=== PATIENT | female | born 1955 | race African-American/Black ===

== ENCOUNTER 2019-09-18 18:58 | Emergency (ER) | payer MEDICAID ==
[~2019-09-18] VITALS: Ht 170.2 cm; Wt 85.0 kg
[~2019-09-18 18:58] MED LIST: ALBU6.7H11 INH; AMLO10TA80 PO; ATROV INH; BUDE6HFA IH; HERBAL LAXATIVE; HYDR25TA PO; LORA1TAB PO; MOME13HF2 INH; OLAN15TA17 MT
[2019-09-18] MEDS ORDERED: ALBUTEROL (0.083%) 2.5MG/3ML NEB HHN STA (19:36)
[2019-09-18] MEDS ORDERED: METHYLPREDNISOLONE SOD SUCC 125 MG/2 ML VIAL IV STA (19:36)
[2019-09-18] MEDS ORDERED: ALBUTEROL (0.5%) 2.5MG/0.5ML NEB HHN ONE (19:45)
[2019-09-18] MEDS ORDERED: PREDNISONE 20MG TABLET PO ONE (19:45)
[2019-09-18 19:57] VITALS: BP 145/87
[2019-09-18 20:29] LABS: BASOPHILS % 0.8 % (0.0-2.0); EOSINOPHILS % 1.5 % (0.0-5.0); HEMATOCRIT. 45.9 % (36.0-48.0); HEMOGLOBIN. 15.3 g/dL (12.0-16.0); LYMPHOCYTES % 29.6 % (20.0-50.0); MEAN CORPUSCULAR HEMOGLOBIN 29.1 pg (28.0-32.0); MEAN PLATELET VOLUME 7.8 fl (7.4-10.4); MONOCYTES % 8.3 % (2.0-8.0); NEUTROPHILS % 59.8 % (40.0-76.0); PLATELET 249 x1000/uL (130-400); RED BLOOD CELL COUNT 5.27 mill/uL (4.2-5.4); RED CELL DISTRIBUTION WIDTH 14.9 % (11.6-14.6)
[2019-09-18 20:31] LABS: CHLORIDE 109 mEq/L (98-107)
== END 2019-09-18 22:17 | disposition home or self-care (01) ==
LOC: ER 18:58
DX: J44.1 Chronic obstructive pulmonary disease with (acute) exacerbation (principal); J45.901 Unspecified asthma with (acute) exacerbation; I10 Essential (primary) hypertension; Z88.2 Allergy status to sulfonamides; Z79.899 Other long term (current) drug therapy
CPT/HCPCS: 36415; 71045; 80053; 83880; 84484; 85025; 93005; 94640; 99284; J7512; J7611; Z7610

== ENCOUNTER 2019-10-28 10:20 | Inpatient (IN) | payer MEDICAID ==
[~2019-10-28] VITALS: Ht 177.8 cm; Wt 108.4 kg
[2019-10-28] MEDS ORDERED: IPRATROPIUM BROMIDE (0.02%) 0.5MG/2.5ML NEB HHN STA (11:42)
[2019-10-28] MEDS ORDERED: MORPHINE SULFATE 4 MG/ML CPJ (NOT FOR IM USE) IV STA (11:42)
[2019-10-28] MEDS ORDERED: ONDANSETRON HCL 4MG/2ML INJ IV STA (11:42)
[2019-10-28] MEDS ORDERED: METHYLPREDNISOLONE SOD SUCC 125 MG/2 ML VIAL IV STA (11:42)
[2019-10-28] MEDS ORDERED: ALBUTEROL (0.083%) 2.5MG/3ML NEB HHN STA (11:42)
[2019-10-28 11:43] LABS: BASOPHILS % 0.6 % (0.0-2.0); EOSINOPHILS % 0.1 % (0.0-5.0); HEMATOCRIT. 43.3 % (36.0-48.0); HEMOGLOBIN. 14.5 g/dL (12.0-16.0); LYMPHOCYTES % 27.3 % (20.0-50.0); MEAN CORPUSCULAR HEMOGLOBIN 29.4 pg (28.0-32.0); MEAN CORPUSCULAR VOLUME 87.7 fL (81.0-99.0); MEAN PLATELET VOLUME 8.1 fl (7.4-10.4); PLATELET 220 x1000/uL (130-400); RED BLOOD CELL COUNT 4.95 mill/uL (4.2-5.4); RED CELL DISTRIBUTION WIDTH 15.3 % (11.6-14.6)
[2019-10-28] MEDS ORDERED: MAGNESIUM 2 G PREMIX 50 ML IV ONE (11:45)
[2019-10-28] MEDS ORDERED: ASPIRIN 81MG TABLET PO ONE (11:45)
[2019-10-28] MEDS ORDERED: NITROGLYCERIN OINT 1GM/INCH UDPKT TD ONE (11:45)
[2019-10-28 11:48] LABS: CHLORIDE 109 mEq/L (98-107)
[2019-10-28] MEDS ORDERED: KCL 10MEQ/50ML PREMIX 50 ML IV ONE (12:30)
[2019-10-28] MEDS ORDERED: ENALAPRIL 1.25MG/ML VIAL 1ML IV NR (12:30)
[2019-10-28] MEDS ORDERED: ENALAPRIL 2.5MG/2ML VIAL 2ML IV ONE (12:30)
[2019-10-28] MEDS ORDERED: POTASSIUM CHLORIDE 20MEQ TABLET SR PO ONE (12:30)
[2019-10-28] MEDS ORDERED: ACETAMINOPHEN 325MG TABLET PO PRN (14:00)
[2019-10-28] MEDS ORDERED: IPRATROPIUM/ALBUTEROL 0.5-3(2.5)MG/3ML NEB HHN PRN (14:00)
[2019-10-28] MEDS ORDERED: ONDANSETRON HCL 4MG/2ML INJ IV PRN (14:00)
[2019-10-28 18:00] VITALS: BP 134/78
[2019-10-28] MEDS ORDERED: DOCU-138 MT (18:23)
[2019-10-28 18:43] VITALS: BP 134/78
[2019-10-28 20:00] VITALS: BP 118/58
[2019-10-28] MEDS: IPRATROPIUM/ALBUTEROL 0.5-3(2.5)MG/3ML NEB HHN SCH (20:38)
[2019-10-28] MEDS ORDERED: FAMOTIDINE 20MG TABLET PO SCH (21:00)
[2019-10-28] MEDS: AMLODIPINE 5MG TABLET PO SCH (21:00)
[2019-10-28] MEDS: METHYLPREDNISOLONE SOD SUCC 40 MG/ML VIAL IV SCH (21:39)
[2019-10-29] VITALS: BP 117/56
[2019-10-29] MEDS: IPRATROPIUM/ALBUTEROL 0.5-3(2.5)MG/3ML NEB HHN SCH ×3 (00:16→11:32)
[2019-10-29 04:00] VITALS: BP 120/65
[2019-10-29] MEDS: METHYLPREDNISOLONE SOD SUCC 40 MG/ML VIAL IV SCH ×2 (04:26→12:23)
[2019-10-29 08:00] VITALS: BP 131/78
[2019-10-29] MEDS ORDERED: ASPIRIN 81MG TABLET PO SCH (09:00)
[2019-10-29] MEDS ORDERED: INFLUENZA VIRUS VACCINE(AFLURIA) 0.5ML SYR IM ONE (09:00)
[2019-10-29] MEDS: AMLODIPINE 5MG TABLET PO SCH (09:25)
[2019-10-29 12:00] VITALS: BP 144/84
[2019-10-29] MEDS ORDERED: DOCUSATE SODIUM 100MG CAPSULE PO SCH (12:00)
[2019-10-29] MEDS ORDERED: LACTULOSE 20G/30ML UDC PO PRN (12:00)
[2019-10-29] MEDS ORDERED: BUDE6HFA IH (12:28)
[2019-10-29] MEDS ORDERED: ALBU6.7H11 INH (12:28)
[2019-10-29] MEDS ORDERED: IPRA3AMP9 NEB (12:28)
[2019-10-29] MEDS ORDERED: FAMO-135 MT (12:28)
[2019-10-29] MEDS ORDERED: MED4 MT (12:28)
[2019-10-29 13:42] VITALS: BP 144/84
== END 2019-10-29 15:30 | disposition home or self-care (01) | DRG 243 ==
LOC: ER 10:20 → 6WST 12:28 → EDBEDREQ 12:30 → ENRESERV 16:06
PROVIDERS: ADMIT Internal Medicine; ATTEND Internal Medicine
DX: K21.9 Gastro-esophageal reflux disease without esophagitis (principal); J44.1 Chronic obstructive pulmonary disease with (acute) exacerbation; E87.8 Other disorders of electrolyte and fluid balance, not elsewhere classified; E66.9 Obesity, unspecified; E87.6 Hypokalemia; F17.210 Nicotine dependence, cigarettes, uncomplicated; I10 Essential (primary) hypertension; I16.0 Hypertensive urgency; Z79.52 Long term (current) use of systemic steroids; Z68.34 Body mass index [BMI] 34.0-34.9, adult
CPT/HCPCS: 36415; 71045; 80053; 83880; 84439; 84484; 85025; 90686; 93005; 93306; 94640; 99291; J2270; J2405; J2920; J2930; J3475; J3480; J3490

== ENCOUNTER 2019-12-20 10:39 | Emergency (ER) | payer MEDICAID ==
[~2019-12-20] VITALS: Ht 175.3 cm; Wt 104.0 kg
[~2019-12-20 10:39] MED LIST changes: +DOCU-138 MT; +FAMO-135 MT; -HERBAL LAXATIVE; -HYDR25TA PO; +IPRA3AMP9 NEB; -LORA1TAB PO; +MED4 MT
[2019-12-20] MEDS ORDERED: PREDNISONE 20MG TABLET PO STA (11:05)
[2019-12-20] MEDS ORDERED: IPRATROPIUM BROMIDE (0.02%) 0.5MG/2.5ML NEB HHN STA (11:05)
[2019-12-20] MEDS ORDERED: ALBUTEROL (0.083%) 2.5MG/3ML NEB HHN STA (11:05)
[2019-12-20 13:22] VITALS: BP 152/74
== END 2019-12-20 13:22 | disposition home or self-care (01) ==
LOC: ER 10:39
DX: J44.1 Chronic obstructive pulmonary disease with (acute) exacerbation (principal); I10 Essential (primary) hypertension; Z98.890 Other specified postprocedural states; Z79.899 Other long term (current) drug therapy; Z76.0 Encounter for issue of repeat prescription
CPT/HCPCS: 71045; 94640; 99283; J7512; Z7610

== ENCOUNTER 2020-01-27 13:26 | Emergency (ER) | payer MEDICAID ==
[~2020-01-27] VITALS: Ht 177.8 cm; Wt 90.7 kg
[2020-01-27] MEDS ORDERED: ALBUTEROL (0.083%) 2.5MG/3ML NEB HHN STA (13:58)
[2020-01-27] MEDS ORDERED: METHYLPREDNISOLONE SOD SUCC 125 MG/2 ML VIAL IV STA (13:58)
[2020-01-27 14:38] LABS: BASOPHILS % 0.3 % (0.0-2.0); EOSINOPHILS % 0.1 % (0.0-5.0); HEMOGLOBIN. 13.9 g/dL (12.0-16.0); LYMPHOCYTES % 8.5 % (20.0-50.0); MEAN CORPUSCULAR HEMOGLOBIN 30.6 pg (28.0-32.0); MEAN PLATELET VOLUME 7.5 fl (7.4-10.4); MONOCYTES % 3.9 % (2.0-8.0); NEUTROPHILS % 87.2 % (40.0-76.0); PLATELET 172 x1000/uL (130-400); RED BLOOD CELL COUNT 4.56 mill/uL (4.2-5.4); RED CELL DISTRIBUTION WIDTH 15.9 % (11.6-14.6)
[2020-01-27 14:44] LABS: CHLORIDE 110 mEq/L (98-107)
[2020-01-27 14:54] VITALS: BP 147/85
[2020-01-27 15:20] LABS: *AMPHETAMINES SCREEN URINE NEGATIVE (NEGATIVE); *BARBITURATES SCREEN URINE NEGATIVE (NEGATIVE); *BENZODIAZEPINES SCREEN URINE NEGATIVE (NEGATIVE)
[2020-01-27 15:21] LABS: *COCAINE SCREEN URINE NEGATIVE (NEGATIVE); CANNABINOID URINE SCREEN NEGATIVE (NEGATIVE); METHADONE URINE SCREEN NEGATIVE (NEGATIVE); OPIATES URINE SCREEN NEGATIVE (NEGATIVE); PHENCYCLIDINE URINE SCREEN NEGATIVE (NEGATIVE)
== END 2020-01-27 15:36 | disposition home or self-care (01) ==
LOC: ER 13:26 → CANBEDREQ 17:19
DX: J44.1 Chronic obstructive pulmonary disease with (acute) exacerbation (principal); I10 Essential (primary) hypertension; Z79.899 Other long term (current) drug therapy
CPT/HCPCS: 36415; 71045; 80053; 80305; 83880; 84484; 85025; 93005; 94640; 96374; 99285; J2930; Z7610

== ENCOUNTER 2020-01-28 05:10 | Inpatient (IN) | payer MEDICAID ==
[~2020-01-28] VITALS: Ht 177.8 cm; Wt 122.0 kg
[2020-01-28] MEDS ORDERED: ALBUTEROL (0.5%) 2.5MG/0.5ML NEB HHN ONE (07:00)
[2020-01-28 07:16] LABS: HEMATOCRIT. 42.4 % (36.0-48.0); HEMOGLOBIN. 14.1 g/dL (12.0-16.0); MEAN CORPUSCULAR HEMOGLOBIN 30.2 pg (28.0-32.0); MEAN CORPUSCULAR VOLUME 90.5 fL (81.0-99.0); PLATELET 187 x1000/uL (130-400); RED BLOOD CELL COUNT 4.68 mill/uL (4.2-5.4); RED CELL DISTRIBUTION WIDTH 16.3 % (11.6-14.6)
[2020-01-28 07:20] LABS: CHLORIDE 108 mEq/L (98-107)
[2020-01-28 07:44] LABS: INR 0.9; PARTIAL THROMBOPLASTIN TIME 22.2 sec (23.4-31.0); PROTHROMBIN TIME 10.2 sec (9.6-11.0)
[2020-01-28 08:09] LABS: PLATELET ESTIMATE NORMAL
[2020-01-28 09:47] LABS: BG DEOXYHEMOGLOBIN 12.4 % (0.0-5.0); BG FRACTION INSPIRED OXYGEN 28; BG HCO3 ACT 27.3 mmol/L (22.0-26.0); BG METHEMOGLOBIN 0.5 % (0.0-1.5); BG OXYGEN SATURATION 87.3 % (92.0-98.5); BG OXYHEMOGLOBIN 85.1 % (94.0-97.0); BG PCO2 50.2 mmHg (35.0-45.0); BG PH 7.354 (7.350-7.450); BG PO2 52.7 mmHg (75.0-100.0); BG SAMPLE SITE RIGHT RADIAL; BG TOTAL HEMOGLOBIN 14.1 g/dL (12.0-18.0); BG VENT MODE NASAL CANNULA
[2020-01-28] MEDS ORDERED: ACETAMINOPHEN 325MG TABLET PO PRN (11:15)
[2020-01-28] MEDS ORDERED: DIPHENHYDRAMINE 50MG/ML VIAL IV PRN (11:15)
[2020-01-28] MEDS ORDERED: ONDANSETRON HCL 4MG/2ML INJ IV PRN (11:15)
[2020-01-28] MEDS ORDERED: CLONIDINE 0.1MG TABLET PO PRN (11:15)
[2020-01-28 11:46] LABS: C REACTIVE PROTEIN QUANT 0.7 mg/L (0.0-3.0); PHOSPHORUS 4.3 mg/dL (2.5-4.9)
[2020-01-28] MEDS: ENOXAPARIN 40MG/0.4ML SYR SUBCUT SCH (11:46)
[2020-01-28 13:20] VITALS: BP 157/89
[2020-01-28 16:39] VITALS: BP 143/77
[2020-01-28 20:00] VITALS: BP 125/65
[2020-01-28] MEDS: IPRATROPIUM/ALBUTEROL 0.5-3(2.5)MG/3ML NEB HHN SCH (21:59)
[2020-01-28] MEDS: BUDESONIDE 0.5MG/2ML NEB HHN SCH (21:59)
[2020-01-28] MEDS ORDERED: DEXTROSE 50% WATER 50ML SYRINGE IV PRN (23:30)
[2020-01-29] VITALS: BP 138/84
[2020-01-29] MEDS: IPRATROPIUM/ALBUTEROL 0.5-3(2.5)MG/3ML NEB HHN SCH ×6 (00:30→21:21)
[2020-01-29 04:00] VITALS: BP 137/81
[2020-01-29 06:13] LABS: BASOPHILS % 0.4 % (0.0-2.0); EOSINOPHILS % 0.6 % (0.0-5.0); HEMATOCRIT. 40.7 % (36.0-48.0); HEMOGLOBIN. 13.5 g/dL (12.0-16.0); MEAN CORPUSCULAR HEMOGLOBIN 30.4 pg (28.0-32.0); MEAN CORPUSCULAR VOLUME 91.5 fL (81.0-99.0); MEAN PLATELET VOLUME 7.8 fl (7.4-10.4); MONOCYTES % 6.6 % (2.0-8.0); NEUTROPHILS % 55.4 % (40.0-76.0); PLATELET 160 x1000/uL (130-400); RED BLOOD CELL COUNT 4.45 mill/uL (4.2-5.4); RED CELL DISTRIBUTION WIDTH 16.3 % (11.6-14.6)
[2020-01-29 06:22] LABS: CHLORIDE 110 mEq/L (98-107)
[2020-01-29 06:29] LABS: LDL CHOLESTEROL 45 mg/dL (5-100)
[2020-01-29 06:30] LABS: HDL CHOLESTEROL 115 mg/dL (40-59)
[2020-01-29] MEDS: INSULIN LISPRO 100 UNITS/ML SUBCUT SCH ×4 (07:32→21:00)
[2020-01-29] MEDS: BLOOD SUGAR DIAGNOSTIC STRIP TEST SCH ×4 (07:32→21:46)
[2020-01-29 07:55] VITALS: BP 150/74
[2020-01-29] MEDS: BUDESONIDE 0.5MG/2ML NEB HHN SCH ×2 (08:50→21:21)
[2020-01-29 12:00] VITALS: BP 144/99
[2020-01-29] MEDS ORDERED: IPRATROPIUM/ALBUTEROL 0.5-3(2.5)MG/3ML NEB HHN PRN (12:15)
[2020-01-29] MEDS: ENOXAPARIN 40MG/0.4ML SYR SUBCUT SCH (12:27)
[2020-01-29] MEDS: METHYLPREDNISOLONE SOD SUCC 40 MG/ML VIAL IV SCH ×2 (13:39→21:46)
[2020-01-29] MEDS ORDERED: IOHEXOL-350 100 ML BOTTLE ONE (14:49)
[2020-01-29 16:00] VITALS: BP 154/95
[2020-01-29 20:00] VITALS: BP 147/91
[2020-01-30] VITALS: BP 129/73
[2020-01-30] MEDS: IPRATROPIUM/ALBUTEROL 0.5-3(2.5)MG/3ML NEB HHN SCH ×4 (01:07→13:20)
[2020-01-30 04:00] VITALS: BP 128/63
[2020-01-30 04:50] LABS: CHLORIDE 105 mEq/L (98-107)
[2020-01-30 06:17] LABS: HEMATOCRIT. 40.5 % (36.0-48.0); HEMOGLOBIN. 13.6 g/dL (12.0-16.0); MEAN CORPUSCULAR HEMOGLOBIN 30.2 pg (28.0-32.0); MEAN CORPUSCULAR VOLUME 89.8 fL (81.0-99.0); PLATELET 157 x1000/uL (130-400); RED BLOOD CELL COUNT 4.51 mill/uL (4.2-5.4); RED CELL DISTRIBUTION WIDTH 15.9 % (11.6-14.6)
[2020-01-30] MEDS: BLOOD SUGAR DIAGNOSTIC STRIP TEST SCH ×2 (06:24→11:40)
[2020-01-30] MEDS: METHYLPREDNISOLONE SOD SUCC 40 MG/ML VIAL IV SCH ×2 (06:24→13:50)
[2020-01-30] MEDS: INSULIN LISPRO 100 UNITS/ML SUBCUT SCH ×2 (07:50→11:40)
[2020-01-30 08:00] VITALS: BP 148/86
[2020-01-30] MEDS: BUDESONIDE 0.5MG/2ML NEB HHN SCH (08:35)
[2020-01-30] MEDS ORDERED: ENOXAPARIN 30MG/0.3ML SYR SUBCUT SCH (09:00)
[2020-01-30 12:00] VITALS: BP 163/83
[2020-01-30 12:48] LABS: PLATELET ESTIMATE NORMAL
[2020-01-30] MEDS ORDERED: IPRA3AMP9 NEB (15:23)
[2020-01-30] MEDS ORDERED: MOME13HF2 INH (15:23)
[2020-01-30] MEDS ORDERED: P20 MT (15:23)
[2020-01-30] MEDS ORDERED: ALBU6.7H11 INH (15:23)
[2020-01-30 16:00] VITALS: BP 146/77
[2020-01-30 16:11] VITALS: BP 138/78
[2020-01-30] MEDS ORDERED: METHYLPREDNISOLONE SOD SUCC 40 MG/ML VIAL IV SCH (17:00)
[2020-01-30] MEDS ORDERED: IPRATROPIUM/ALBUTEROL 0.5-3(2.5)MG/3ML NEB HHN SCH (18:00)
== END 2020-01-30 18:05 | disposition home or self-care (01) | DRG 140 ==
LOC: ER 05:10 → 6WST 10:07
PROVIDERS: ADMIT Internal Medicine; ATTEND Internal Medicine
DX: J44.1 Chronic obstructive pulmonary disease with (acute) exacerbation (principal); J96.01 Acute respiratory failure with hypoxia; I27.21 Secondary pulmonary arterial hypertension; I10 Essential (primary) hypertension; F41.9 Anxiety disorder, unspecified; F32.9 Major depressive disorder, single episode, unspecified; I31.3 Pericardial effusion (noninflammatory); J98.11 Atelectasis; F17.210 Nicotine dependence, cigarettes, uncomplicated; I37.1 Nonrheumatic pulmonary valve insufficiency; K21.9 Gastro-esophageal reflux disease without esophagitis; Z20.828 Contact with and (suspected) exposure to other viral communicable diseases; E11.65 Type 2 diabetes mellitus with hyperglycemia; Z79.51 Long term (current) use of inhaled steroids; Z79.899 Other long term (current) drug therapy
CPT/HCPCS: 36415; 36600; 71045; 71275; 80048; 80053; 80061; 82375; 82728; 82805; 82962; 83036; 83615; 83735; 83880; 84100; 84443; 84484; 85025; 85379; 86140; 93005; 93970; 99285; J1650; J2920; J7626; Q9967

== ENCOUNTER 2020-04-20 17:53 | Emergency (ER) | payer MEDICAID ==
[~2020-04-20] VITALS: Ht 175.3 cm; Wt 100.0 kg
[~2020-04-20 17:53] MED LIST changes: -MED4 MT; +P20 MT
[2020-04-20] MEDS ORDERED: METHYLPREDNISOLONE SOD SUCC 125 MG/2 ML VIAL IV STA (19:54)
[2020-04-20 20:25] LABS: BASOPHILS % 0.8 % (0.0-2.0); EOSINOPHILS % 0.5 % (0.0-5.0); HEMATOCRIT. 44.4 % (36.0-48.0); LYMPHOCYTES % 12.1 % (20.0-50.0); MEAN CORPUSCULAR HEMOGLOBIN 29.8 pg (28.0-32.0); MEAN CORPUSCULAR VOLUME 88.2 fL (81.0-99.0); MEAN PLATELET VOLUME 8.4 fl (7.4-10.4); MONOCYTES % 5.4 % (2.0-8.0); NEUTROPHILS % 81.2 % (40.0-76.0); PLATELET 236 x1000/uL (130-400); RED BLOOD CELL COUNT 5.03 mill/uL (4.2-5.4); RED CELL DISTRIBUTION WIDTH 14.8 % (11.6-14.6)
[2020-04-20 20:34] LABS: CHLORIDE 107 mEq/L (98-107)
[2020-04-20 20:38] LABS: INR 0.9; PROTHROMBIN TIME 9.7 sec (9.6-11.0)
[2020-04-20 20:51] LABS: CLARITY URINE CLEAR (CLEAR); COLOR URINE YELLOW (YELLOW); KETONES URINE NEGATIVE (NEGATIVE); LEUKOCYTE ESTERASE URINE 1+ (NEGATIVE); NITRITE URINE NEGATIVE (NEGATIVE); OCCULT BLOOD URINE NEGATIVE (NEGATIVE); PH URINE >=9.0 (4.5-8.0); PROTEIN URINE NEGATIVE (NEGATIVE); SPECIFIC GRAVITY URINE 1.013 (1.005-1.030); UROBILINOGEN URINE 0.2 E.U./dL (0.2-1.0)
[2020-04-20 21:32] VITALS: BP 145/75
== END 2020-04-20 21:32 | disposition home or self-care (01) ==
LOC: ER 17:53 → CANBEDREQ 22:54
DX: J44.1 Chronic obstructive pulmonary disease with (acute) exacerbation (principal); I10 Essential (primary) hypertension; Z79.899 Other long term (current) drug therapy; Z76.0 Encounter for issue of repeat prescription
CPT/HCPCS: 36415; 71045; 80053; 81003; 83880; 84484; 85025; 85610; 96374; 99284; J2930

== ENCOUNTER 2020-10-01 03:27 | Inpatient (IN) | payer MEDICAID ==
[~2020-10-01] VITALS: Ht 177.8 cm; Wt 99.8 kg
[2020-10-01] MEDS ORDERED: METHYLPREDNISOLONE SOD SUCC 125 MG/2 ML VIAL IV STA (04:33)
[2020-10-01] MEDS ORDERED: IPRATROPIUM BROMIDE (0.02%) 0.5MG/2.5ML NEB HHN STA (04:33)
[2020-10-01] MEDS: ALBUTEROL (0.083%) 2.5MG/3ML NEB HHN SCH ×3 (04:49→06:22)
[2020-10-01] MEDS ORDERED: IPRATROPIUM BROMIDE (0.02%) 0.5MG/2.5ML NEB ONE (04:54)
[2020-10-01 05:45] LABS: BASOPHILS % 0.3 % (0.0-2.0); EOSINOPHILS % 0.1 % (0.0-5.0); HEMATOCRIT. 41.1 % (36.0-48.0); HEMOGLOBIN. 13.7 g/dL (12.0-16.0); LYMPHOCYTES % 12.1 % (20.0-50.0); MEAN CORPUSCULAR HEMOGLOBIN 29.6 pg (28.0-32.0); MEAN CORPUSCULAR VOLUME 88.9 fL (81.0-99.0); MONOCYTES % 8.1 % (2.0-8.0); NEUTROPHILS % 79.4 % (40.0-76.0); PLATELET 227 x1000/uL (130-400); RED BLOOD CELL COUNT 4.62 mill/uL (4.2-5.4); RED CELL DISTRIBUTION WIDTH 14.8 % (11.6-14.6)
[2020-10-01 05:51] LABS: CHLORIDE 104 mEq/L (98-107)
[2020-10-01] MEDS ORDERED: ALBUTEROL (0.083%) 2.5MG/3ML NEB HHN ONE (17:00)
[2020-10-01] MEDS: IPRATROPIUM/ALBUTEROL 0.5-3(2.5)MG/3ML NEB HHN SCH (19:49)
[2020-10-02] MEDS: IPRATROPIUM/ALBUTEROL 0.5-3(2.5)MG/3ML NEB HHN SCH ×2 (00:53→10:35)
[2020-10-02] MEDS: ENOXAPARIN 30MG/0.3ML SYR SUBCUT SCH ×2 (09:28→20:28)
[2020-10-02] MEDS: FUROSEMIDE 20MG/2ML VIAL IVP SCH (09:28)
[2020-10-02 12:00] VITALS: BP 133/78
[2020-10-02 14:32] VITALS: BP 136/78
[2020-10-02] MEDS: METHYLPREDNISOLONE SOD SUCC 40 MG/ML VIAL IV SCH (17:35)
[2020-10-02 17:47] LABS: BASOPHILS % 0.8 % (0.0-2.0); HEMATOCRIT. 42.4 % (36.0-48.0); LYMPHOCYTES % 36.6 % (20.0-50.0); MEAN CORPUSCULAR HEMOGLOBIN 29.4 pg (28.0-32.0); MEAN PLATELET VOLUME 8.5 fl (7.4-10.4); MONOCYTES % 7.2 % (2.0-8.0); NEUTROPHILS % 54.4 % (40.0-76.0); PLATELET 232 x1000/uL (130-400); RED BLOOD CELL COUNT 4.76 mill/uL (4.2-5.4)
[2020-10-02 17:55] LABS: CHLORIDE 105 mEq/L (98-107)
[2020-10-02] MEDS: ALBUTEROL 6.7GM HFA INHALER ORI SCH (20:00)
[2020-10-03 00:02] VITALS: BP 123/69
[2020-10-03] MEDS: METHYLPREDNISOLONE SOD SUCC 40 MG/ML VIAL IV SCH ×2 (01:09→09:03)
[2020-10-03 04:00] VITALS: BP 116/71
[2020-10-03] MEDS: ALBUTEROL 6.7GM HFA INHALER ORI SCH ×3 (04:00→08:00)
[2020-10-03 07:10] LABS: HEMATOCRIT. 40.5 % (36.0-48.0); HEMOGLOBIN. 13.4 g/dL (12.0-16.0); MEAN CORPUSCULAR HEMOGLOBIN 29.7 pg (28.0-32.0); MEAN CORPUSCULAR VOLUME 89.8 fL (81.0-99.0); MEAN PLATELET VOLUME 8.7 fl (7.4-10.4); PLATELET 228 x1000/uL (130-400); RED BLOOD CELL COUNT 4.51 mill/uL (4.2-5.4)
[2020-10-03 07:16] LABS: CHLORIDE 106 mEq/L (98-107)
[2020-10-03] MEDS: FUROSEMIDE 20MG/2ML VIAL IVP SCH (08:35)
[2020-10-03] MEDS: ENOXAPARIN 30MG/0.3ML SYR SUBCUT SCH (08:35)
[2020-10-03 12:00] VITALS: BP 130/56
[2020-10-03] MEDS ORDERED: MED4 MT (13:04)
[2020-10-03 13:08] VITALS: BP 130/60
[2020-10-03 17:20] LABS: PLATELET ESTIMATE NORMAL
[2020-10-29] MEDS ORDERED: FLUT1BLS9 IH (09:38)
[2020-10-29] MEDS ORDERED: MED4 MT (09:38)
== END 2020-10-03 17:47 | disposition home or self-care (01) | DRG 140 ==
LOC: ER 03:27 → MICUSO 06:03 → SUPCPDRO 17:19 → 7WST 10-02 10:25 → 6WST 10-03 11:10
PROVIDERS: ADMIT Internal Medicine; ATTEND Internal Medicine
DX: J44.1 Chronic obstructive pulmonary disease with (acute) exacerbation (principal); I11.0 Hypertensive heart disease with heart failure; F03.90 Unspecified dementia, unspecified severity, without behavioral disturbance, psychotic disturbance, mood disturbance, and anxiety; I50.32 Chronic diastolic (congestive) heart failure; F17.210 Nicotine dependence, cigarettes, uncomplicated; E66.9 Obesity, unspecified; Z20.822 Contact with and (suspected) exposure to COVID-19; Z82.49 Family history of ischemic heart disease and other diseases of the circulatory system; Z83.3 Family history of diabetes mellitus; Z79.899 Other long term (current) drug therapy; Z68.31 Body mass index [BMI] 31.0-31.9, adult
CPT/HCPCS: 36415; 71045; 80048; 80053; 83605; 83880; 84484; 85025; 87635; 93005; 94640; 96374; 99291; J1650; J1940; J2920; J2930

== ENCOUNTER 2020-11-14 22:30 | Inpatient (IN) | payer MEDICAID ==
[~2020-11-14] VITALS: Ht 177.8 cm; Wt 121.6 kg
[~2020-11-14 22:30] MED LIST changes: +FLUT1BLS9 IH; +MED4 MT
[2020-11-14] MEDS ORDERED: METHYLPREDNISOLONE SOD SUCC 125 MG/2 ML VIAL IV STA (22:32)
[2020-11-14] MEDS ORDERED: IPRATROPIUM BROMIDE (0.02%) 0.5MG/2.5ML NEB HHN STA (22:32)
[2020-11-14] MEDS ORDERED: ALBUTEROL (0.083%) 2.5MG/3ML NEB HHN STA (22:32)
[2020-11-14] MEDS ORDERED: PIPERACILLIN/TAZ 3.375G PREMIX 50 ML IV ONE (22:45)
[2020-11-14] MEDS ORDERED: VANCOMYCIN 1 G PREMIX 200 ML IV ONE (22:45)
[2020-11-14 23:10] LABS: BASOPHILS % 0.5 % (0.0-2.0); EOSINOPHILS % 0.5 % (0.0-5.0); HEMATOCRIT. 40.3 % (36.0-48.0); HEMOGLOBIN. 13.1 g/dL (12.0-16.0); LYMPHOCYTES % 7.6 % (20.0-50.0); MEAN CORPUSCULAR HEMOGLOBIN 28.9 pg (28.0-32.0); MEAN CORPUSCULAR VOLUME 88.8 fL (81.0-99.0); MEAN PLATELET VOLUME 8.2 fl (7.4-10.4); MONOCYTES % 3.9 % (2.0-8.0); NEUTROPHILS % 87.5 % (40.0-76.0); PLATELET 159 x1000/uL (130-400); RED BLOOD CELL COUNT 4.54 mill/uL (4.2-5.4); RED CELL DISTRIBUTION WIDTH 15.2 % (11.6-14.6)
[2020-11-14 23:12] LABS: CHLORIDE 107 mEq/L (98-107)
[2020-11-14 23:29] LABS: BG BASE EXCESS 0.5 mmol/L (-2.0-2.0); BG CARBOXYHEMOGLOBIN 0.1 % (0.5-1.5); BG FRACTION INSPIRED OXYGEN 35; BG HCO3 ACT 25.2 mmol/L (22.0-26.0); BG METHEMOGLOBIN 0.2 % (0.0-1.5); BG OXYHEMOGLOBIN 97.7 % (94.0-97.0); BG PCO2 40.8 mmHg (35.0-45.0); BG PH 7.408 (7.350-7.450); BG PO2 110.5 mmHg (75.0-100.0); BG SAMPLE SITE RIGHT RADIAL; BG TOTAL HEMOGLOBIN 14.9 g/dL (12.0-18.0); BG VENT MODE MASK - BIPAP
[2020-11-14] MEDS ORDERED: SODIUM CHLORIDE 0.9% 1,000 ML IV ONE (23:30)
[2020-11-15 05:10] VITALS: BP 118/74
[2020-11-15] MEDS ORDERED: IPRATROPIUM BROMIDE (0.02%) 0.5MG/2.5ML NEB HHN SCH (09:30)
[2020-11-15 12:00] VITALS: BP 112/64
[2020-11-15] MEDS ORDERED: ACETAMINOPHEN 325MG TABLET PO PRN (13:00)
[2020-11-15] MEDS ORDERED: ONDANSETRON HCL 4MG/2ML INJ IV PRN (13:00)
[2020-11-15] MEDS ORDERED: CLONIDINE 0.1MG TABLET PO PRN (13:00)
[2020-11-15] MEDS ORDERED: AZITHROMYCIN 500 MG TABLET PO SCH (14:15)
[2020-11-15] MEDS ORDERED: CEFTRIAXONE 1 G PREMIX 50 ML IV SCH (14:15)
[2020-11-15] MEDS ORDERED: CEFTRIAXONE 1,000 MG in DEXTROSE 5% WATER 50 ML IV SCH (15:00)
[2020-11-15] MEDS: METHYLPREDNISOLONE SOD SUCC 125 MG/2 ML VIAL IV SCH ×2 (15:06→21:01)
[2020-11-15] MEDS: ENOXAPARIN 40MG/0.4ML SYR SUBCUT SCH (15:06)
[2020-11-15] MEDS: IPRATROPIUM/ALBUTEROL 0.5-3(2.5)MG/3ML NEB HHN SCH ×2 (15:15→23:18)
[2020-11-15 16:00] VITALS: BP 105/58
[2020-11-15] MEDS ORDERED: POTA20TA82 MT (18:38)
[2020-11-15] MEDS ORDERED: FURO80TA87 MT (18:38)
[2020-11-15 20:00] VITALS: BP 121/68
[2020-11-15 20:01] LABS: HEMATOCRIT. 37.8 % (36.0-48.0); HEMOGLOBIN. 12.3 g/dL (12.0-16.0); MEAN CORPUSCULAR HEMOGLOBIN 29.4 pg (28.0-32.0); MEAN CORPUSCULAR VOLUME 90.1 fL (81.0-99.0); MEAN PLATELET VOLUME 7.8 fl (7.4-10.4); PLATELET 155 x1000/uL (130-400); RED BLOOD CELL COUNT 4.19 mill/uL (4.2-5.4); RED CELL DISTRIBUTION WIDTH 15.5 % (11.6-14.6)
[2020-11-15 20:20] LABS: CHLORIDE 108 mEq/L (98-107)
[2020-11-15 20:44] LABS: PLATELET ESTIMATE NORMAL
[2020-11-15 22:45] VITALS: BP 132/80
[2020-11-16 04:00] VITALS: BP 126/60
[2020-11-16] MEDS: IPRATROPIUM/ALBUTEROL 0.5-3(2.5)MG/3ML NEB HHN SCH ×6 (04:16→21:21)
[2020-11-16] MEDS: METHYLPREDNISOLONE SOD SUCC 40 MG/ML VIAL IV SCH ×3 (05:34→21:19)
[2020-11-16 08:00] VITALS: BP 120/70
[2020-11-16] MEDS: POTASSIUM CHLORIDE 20MEQ/PACKET PO SCH (08:24)
[2020-11-16] MEDS: FUROSEMIDE 40MG TABLET PO SCH (08:24)
[2020-11-16] MEDS: OLANZAPINE 10MG TABLET PO SCH (08:24)
[2020-11-16] MEDS: CEFTRIAXONE 1,000 MG in DEXTROSE 5% WATER 50 ML IV SCH (10:19)
[2020-11-16] MEDS ORDERED: LIDOCAINE HCL/PF 1% 2ML VIAL ONE (11:26)
[2020-11-16 12:00] VITALS: BP 126/76
[2020-11-16] MEDS: AZITHROMYCIN 250 MG TABLET PO SCH (13:03)
[2020-11-16] MEDS: ENOXAPARIN 40MG/0.4ML SYR SUBCUT SCH (13:03)
[2020-11-16 13:12] LABS: BG BASE EXCESS 1.8 mmol/L (-2.0-2.0); BG CARBOXYHEMOGLOBIN 0.2 % (0.5-1.5); BG DEOXYHEMOGLOBIN 6.2 % (0.0-5.0); BG FRACTION INSPIRED OXYGEN 21; BG HCO3 ACT 26.6 mmol/L (22.0-26.0); BG METHEMOGLOBIN 0.1 % (0.0-1.5); BG OXYGEN SATURATION 93.8 % (92.0-98.5); BG OXYHEMOGLOBIN 93.5 % (94.0-97.0); BG PCO2 42.4 mmHg (35.0-45.0); BG PH 7.415 (7.350-7.450); BG PO2 64.6 mmHg (75.0-100.0); BG SAMPLE SITE RIGHT RADIAL; BG TOTAL HEMOGLOBIN 13.6 g/dL (12.0-18.0); BG VENT MODE ROOM AIR
[2020-11-16 16:00] VITALS: BP 123/64
[2020-11-16 20:00] VITALS: BP 120/64
[2020-11-17] VITALS: BP 110/58
[2020-11-17] MEDS: IPRATROPIUM/ALBUTEROL 0.5-3(2.5)MG/3ML NEB HHN SCH ×6 (00:37→20:26)
[2020-11-17 04:00] VITALS: BP 122/66
[2020-11-17] MEDS: METHYLPREDNISOLONE SOD SUCC 40 MG/ML VIAL IV SCH ×3 (06:12→21:09)
[2020-11-17 08:00] VITALS: BP 122/65
[2020-11-17] MEDS: POTASSIUM CHLORIDE 20MEQ/PACKET PO SCH (08:41)
[2020-11-17] MEDS: ENOXAPARIN 30MG/0.3ML SYR SUBCUT SCH ×2 (08:41→20:18)
[2020-11-17] MEDS: FUROSEMIDE 40MG TABLET PO SCH (08:41)
[2020-11-17] MEDS: OLANZAPINE 10MG TABLET PO SCH (08:41)
[2020-11-17] MEDS: CEFTRIAXONE 1,000 MG in DEXTROSE 5% WATER 50 ML IV SCH (10:50)
[2020-11-17 12:00] VITALS: BP 112/67
[2020-11-17] MEDS: AZITHROMYCIN 250 MG TABLET PO SCH (13:25)
[2020-11-17 16:00] VITALS: BP 113/66
[2020-11-17 20:00] VITALS: BP 162/82
[2020-11-18] VITALS: BP 100/54
[2020-11-18] MEDS: IPRATROPIUM/ALBUTEROL 0.5-3(2.5)MG/3ML NEB HHN SCH ×5 (00:21→16:51)
[2020-11-18 04:00] VITALS: BP 127/74
[2020-11-18] MEDS: METHYLPREDNISOLONE SOD SUCC 40 MG/ML VIAL IV SCH ×2 (05:41→13:50)
[2020-11-18 06:47] LABS: HEMATOCRIT. 40.2 % (36.0-48.0); HEMOGLOBIN. 13.1 g/dL (12.0-16.0); MEAN CORPUSCULAR HEMOGLOBIN 29.1 pg (28.0-32.0); MEAN CORPUSCULAR VOLUME 89.4 fL (81.0-99.0); MEAN PLATELET VOLUME 7.9 fl (7.4-10.4); PLATELET 228 x1000/uL (130-400); RED BLOOD CELL COUNT 4.49 mill/uL (4.2-5.4); RED CELL DISTRIBUTION WIDTH 14.8 % (11.6-14.6)
[2020-11-18 06:54] LABS: CHLORIDE 106 mEq/L (98-107)
[2020-11-18 08:00] VITALS: BP 121/64
[2020-11-18] MEDS: FUROSEMIDE 40MG TABLET PO SCH (08:31)
[2020-11-18] MEDS: POTASSIUM CHLORIDE 20MEQ/PACKET PO SCH (08:31)
[2020-11-18] MEDS: OLANZAPINE 10MG TABLET PO SCH (08:32)
[2020-11-18] MEDS: ENOXAPARIN 30MG/0.3ML SYR SUBCUT SCH (08:32)
[2020-11-18] MEDS: CEFTRIAXONE 1,000 MG in DEXTROSE 5% WATER 50 ML IV SCH (10:38)
[2020-11-18 12:00] VITALS: BP 105/63
[2020-11-18 13:27] LABS: PLATELET ESTIMATE NORMAL
[2020-11-18] MEDS: AZITHROMYCIN 250 MG TABLET PO SCH (13:50)
[2020-11-18 16:00] VITALS: BP 114/67
[2020-11-18 18:21] VITALS: BP 114/67
== END 2020-11-18 20:07 | disposition home or self-care (01) | DRG 720 ==
LOC: ER 22:30 → EDBEDREQ 11-15 00:43 → ENRESERV 11-15 04:11 → 7WST 11-15 05:59 → 5WST 11-15 22:50
PROVIDERS: ADMIT Internal Medicine; ATTEND Internal Medicine
PROC: 5A09357 Assistance with Respiratory Ventilation, Less than 24 Consecutive Hours, Continuous Positive Airway Pressure (ICD-10-PCS; principal; 2020-11-14)
DX: A41.9 Sepsis, unspecified organism (principal); J96.21 Acute and chronic respiratory failure with hypoxia; I11.0 Hypertensive heart disease with heart failure; I50.30 Unspecified diastolic (congestive) heart failure; J18.9 Pneumonia, unspecified organism; J44.0 Chronic obstructive pulmonary disease with (acute) lower respiratory infection; J44.1 Chronic obstructive pulmonary disease with (acute) exacerbation; F17.200 Nicotine dependence, unspecified, uncomplicated; F41.9 Anxiety disorder, unspecified; Z79.899 Other long term (current) drug therapy; E11.9 Type 2 diabetes mellitus without complications; R65.20 Severe sepsis without septic shock; Z20.822 Contact with and (suspected) exposure to COVID-19
CPT/HCPCS: 36415; 36600; 71045; 80048; 80053; 82375; 82805; 83605; 83880; 84145; 84484; 85025; 93005; 93970; 94640; 94660; 99291; J0696; J1650; J2543; J2920; J2930; J3370; J3490; J7030; J7040; J7060; U0003